=== PATIENT | male | born 1980 | race Two or more races ===

== ENCOUNTER 2022-03-11 17:36 | Inpatient (IN) | payer SELFPAY ==
[~2022-03-11] VITALS: Ht 167.6 cm; Wt 77.1 kg
[2022-03-11] MEDS ORDERED: NITROGLYCERIN 0.4MG TABLET SL SL PRN (18:00)
[2022-03-11] MEDS ORDERED: LORAZEPAM 2MG/ML CPJ IV ONE (18:00)
[2022-03-11] MEDS ORDERED: ASPIRIN 81MG TABLET PO ONE (18:00)
[2022-03-11] MEDS ORDERED: SODIUM CHLORIDE 0.9% 1,000 ML IV ONE (18:00)
[2022-03-11 19:06] LABS: BASOPHILS % 1.1 % (0.0-2.0); EOSINOPHILS % 0.1 % (0.0-5.0); HEMATOCRIT. 41.3 % (42.0-52.0); HEMOGLOBIN. 14.2 g/dL (14.0-18.0); LYMPHOCYTES % 21.6 % (20.0-50.0); MEAN CORPUSCULAR HEMOGLOBIN 28.3 pg (28.0-32.0); MEAN CORPUSCULAR VOLUME 82.3 fL (80.0-94.0); MEAN PLATELET VOLUME 8.2 fl (7.4-10.4); MONOCYTES % 10.5 % (2.0-8.0); NEUTROPHILS % 66.7 % (40.0-76.0); PLATELET 303 x1000/uL (130-400); RED BLOOD CELL COUNT 5.01 mill/uL (4.7-6.1); RED CELL DISTRIBUTION WIDTH 14.1 % (11.6-14.6)
[2022-03-11 19:15] LABS: CHLORIDE 99 mEq/L (98-107)
[2022-03-11 19:25] LABS: ETHANOL BLOOD < 10 mg/dL
[2022-03-11] MEDS ORDERED: ASPIRIN 81MG TABLET PO SCH (22:15)
[2022-03-11] MEDS ORDERED: LORAZEPAM 2MG/ML CPJ IV SCH (22:15)
[2022-03-12 09:00] VITALS: BP_SYST 134; BP_DIAS 48; BP_DIAS 98
[2022-03-12] MEDS ORDERED: OMEP10CA5 MT (11:42)
[2022-03-12] MEDS ORDERED: OMEPRAZOLE 20MG CAPSULE EXTENDED RELEASE PO NR (12:16)
[2022-03-12] MEDS ORDERED: ACETAMINOPHEN 325MG TABLET PO PRN ×2 (17:45)
[2022-03-12] MEDS ORDERED: DIPHENHYDRAMINE 50MG/ML VIAL IV PRN (17:45)
[2022-03-12 20:00] VITALS: BP 123/76
[2022-03-12] MEDS ORDERED: CEFTRIAXONE 2 G in DEXTROSE 5% WATER 50 ML IV SCH (20:00)
[2022-03-12] MEDS: SODIUM CHLORIDE 0.9% INJ 3ML FLUSH IVF SCH (20:28)
[2022-03-12 23:31] VITALS: BP 108/66
[2022-03-13 04:00] VITALS: BP 106/63
[2022-03-13] MEDS: SODIUM CHLORIDE 0.9% INJ 3ML FLUSH IVF SCH (06:58)
[2022-03-13] MEDS ORDERED: OMEPRAZOLE 20MG CAPSULE EXTENDED RELEASE PO SCH (07:10)
[2022-03-13 08:00] VITALS: BP 108/65
[2022-03-13 09:43] VITALS: BP 117/81
== END 2022-03-13 11:50 | disposition left against medical advice (07) | DRG 113 ==
LOC: ER 17:36 → 8WST 21:26
PROVIDERS: ADMIT Internal Medicine; ATTEND Internal Medicine
DX: H70.91 Unspecified mastoiditis, right ear (principal); F15.10 Other stimulant abuse, uncomplicated; K21.9 Gastro-esophageal reflux disease without esophagitis; Z53.29 Procedure and treatment not carried out because of patient's decision for other reasons; I10 Essential (primary) hypertension; H53.2 Diplopia
CPT/HCPCS: 36415; 71045; 80053; 80320; 83880; 84145; 84484; 85025; 85651; 93005; 99285; J0696; J2060; J7030; J7060; G0480